=== PATIENT | female | born 1965 | race African-American/Black ===

== ENCOUNTER 2020-09-01 19:04 | Emergency (ER) | payer OTHER ==
[2020-09-01] MEDS ORDERED: Acetaminophen 500 MG TAB ONE (20:14)
[2020-09-02 11:23] LABS: SARS-CoV-2 NAA Rapid Test DETECTED (NotDetected)
== END 2020-09-01 20:19 | disposition home or self-care (01) ==
LOC: CSHERS 19:04
DX: U07.1 COVID-19 (principal)
CPT/HCPCS: 87635; 99283; U0002; U0003; U0005

== ENCOUNTER 2024-03-11 10:39 | Outpatient (CLI) | payer OTHER | END 2024-03-11 10:40 | disposition home or self-care (01) | LOC: CSHMAMMO 10:39 | PROVIDERS: ATTEND Family Medicine | DX: Z12.31 Encounter for screening mammogram for malignant neoplasm of breast (principal) | CPT/HCPCS: 77063; 77067 ==